=== PATIENT | male | born 1945 | race Caucasian/White ===

== ENCOUNTER 2018-10-30 10:20 | Day surgery (SDC) | payer MEDICARE, BC ==
[~2018-10-30] VITALS: Ht 170.2 cm; Wt 71.9 kg
[2018-10-30] VITALS (9 sets, daily range): BP systolic 116–142; BP diastolic 64–87
[2018-10-30] MEDS ORDERED: normal saline 1000ml 1,000 ML IV SCH (10:50)
[2018-10-30] MEDS ORDERED: sod bicarbonate 150mEq in D5W 1,150 ML IV ONE (10:50)
[2018-10-30] MEDS ORDERED: diphenhydrAMINE 25mg capsule PO PRN (10:50)
[2018-10-30] MEDS ORDERED: NPH,100V2 SQ (10:56)
[2018-10-30] MEDS ORDERED: LOVA20TA2 PO (10:56)
[2018-10-30] MEDS ORDERED: GLIP5TAB13 PO (10:56)
[2018-10-30] MEDS ORDERED: GLU850T PO (10:56)
[2018-10-30] MEDS ORDERED: ASPI-1265 PO (10:56)
[2018-10-30 11:29] LABS: BASOPHILS # (AUTO) 0.1 X10'3 (0-0.2); EOSINOPHILS # (AUTO) 0.2 X10'3 (0-0.9); EOSINOPHILS % (AUTO) 2.7 % (0-6); HEMATOCRIT 37.6 % (42.0-52.0); HEMOGLOBIN 12.5 g/dl (14.0-17.9); LYMPHOCYTES # (AUTO) 1.5 X10'3 (1.1-4.8); LYMPHOCYTES % (AUTO) 16.2 % (21-51); MEAN CORPUSCULAR HEMOGLOBIN 32.3 PG (27.0-31.0); MEAN CORPUSCULAR HGB CONC 33.3 % (33.0-36.5); MEAN CORPUSCULAR VOLUME 97.2 FL (78-98); MEAN PLATELET VOLUME 8.9 FL (7.4-10.4); MONOCYTES # (AUTO) 0.4 X10'3 (0-0.9); MONOCYTES % (AUTO) 4.5 % (2-12); NEUTROPHILS # (AUTO) 6.8 X10'3 (1.8-7.7); NEUTROPHILS % (AUTO) 75.6 % (42-75); PLATELET COUNT 308 X10'3 (140-440); RED BLOOD COUNT 3.87 X10'6 (4.70-6.10); RED CELL DISTRIBUTION WIDTH 14.4 % (11.5-14.5)
[2018-10-30 11:41] LABS: ALBUMIN 3.9 G/DL (3.4-5.0); ANION GAP 11 (8-16); BLOOD UREA NITROGEN 18 MG/DL (7-18); BUN/CREATININE RATIO 13.8 (5.4-32.0); CALCIUM 9.2 MG/DL (8.5-10.1); CHLORIDE 101 MMOL/L (99-107); MAGNESIUM 1.6 MG/DL (1.5-2.4); POTASSIUM 4.6 MMOL/L (3.5-5.1); SODIUM 137 MMOL/L (135-145); TOTAL CARBON DIOXIDE 25.5 MMOL/L (24-32); eGFR 54 ML/MIN
[2018-10-30 11:46] LABS: GLUCOSE 262 MG/DL (70-104)
[2018-10-30 11:53] LABS: PROTHROMBIN TIME 10.2 SECONDS (9.0-12.0)
[2018-10-30] MEDS ORDERED: iohexol 350MG/ML 100ml bottle IV ONE (13:49)
[2018-10-30] MEDS ORDERED: LIDOcaine 1% 30ml preserv. free vial ONE (13:49)
[2018-10-30] MEDS ORDERED: iohexol 350 MG/ML 50ML vial IV ONE (13:49)
[2018-10-30] MEDS ORDERED: midazolam 2 mg/2 ml injection ONE (14:08)
[2018-10-30] MEDS ORDERED: fentaNYL/PF 50MCG/1 ML 2ML syringe ONE (14:08)
[2018-10-30] MEDS ORDERED: HYDROcodone/acetaminophen 10/325mg tab PO PRN (15:25)
[2018-10-30] MEDS ORDERED: HYDROcodone/acetaminophen 5mg/325mg tablet PO PRN (15:25)
== END 2018-10-30 18:30 | disposition home or self-care (01) ==
LOC: SSTAY O 10:20
PROVIDERS: ATTEND Internal Medicine Cardiovascular Disease
DX: I25.10 Atherosclerotic heart disease of native coronary artery without angina pectoris (principal); I44.4 Left anterior fascicular block; I10 Essential (primary) hypertension; E78.5 Hyperlipidemia, unspecified; E11.9 Type 2 diabetes mellitus without complications; J44.9 Chronic obstructive pulmonary disease, unspecified; N28.9 Disorder of kidney and ureter, unspecified; F17.210 Nicotine dependence, cigarettes, uncomplicated; M19.90 Unspecified osteoarthritis, unspecified site; Z79.82 Long term (current) use of aspirin; Z87.09 Personal history of other diseases of the respiratory system; Z87.442 Personal history of urinary calculi; Z79.4 Long term (current) use of insulin; Z79.84 Long term (current) use of oral hypoglycemic drugs; Z87.01 Personal history of pneumonia (recurrent); Z98.890 Other specified postprocedural states; Z79.899 Other long term (current) drug therapy
CPT/HCPCS: 36415; 80048; 82948; 83735; 85025; 85610; 93005; 93458; 99152; 99153; A6257; C1760; J1644; J2250; J3010; J3490; Q0163; Q9967; C1769; C1894

== ENCOUNTER 2018-11-06 10:16 | Day surgery (SDC) | payer MEDICARE, BC ==
[~2018-11-06] VITALS: Ht 172.7 cm; Wt 70.8 kg
[2018-11-06] VITALS (11 sets, daily range): BP systolic 133–144; BP diastolic 62–88
[~2018-11-06 10:16] MED LIST: ASPI-1265 PO; GLIP5TAB13 PO; GLU850T PO; LOVA20TA2 PO; NPH,100V2 SQ
[2018-11-06] MEDS ORDERED: diphenhydrAMINE 25mg capsule PO PRN (10:40)
[2018-11-06] MEDS ORDERED: sod bicarbonate 150mEq in D5W 1,150 ML IV ONE (10:40)
[2018-11-06] MEDS ORDERED: ISOS30TA6 PO (10:43)
[2018-11-06] MEDS ORDERED: NITR0.4T48 SL (10:43)
[2018-11-06] MEDS ORDERED: normal saline 1000ml 1,000 ML IV SCH (10:50)
[2018-11-06 11:08] LABS: BASOPHILS % (AUTO) 0.6 % (0-1); EOSINOPHILS # (AUTO) 0.1 X10'3 (0-0.9); EOSINOPHILS % (AUTO) 1.8 % (0-6); HEMOGLOBIN 11.2 g/dl (14.0-17.9); LYMPHOCYTES # (AUTO) 1.3 X10'3 (1.1-4.8); MEAN CORPUSCULAR HEMOGLOBIN 32.2 PG (27.0-31.0); MEAN CORPUSCULAR HGB CONC 32.9 % (33.0-36.5); MEAN CORPUSCULAR VOLUME 97.9 FL (78-98); MONOCYTES # (AUTO) 0.3 X10'3 (0-0.9); NEUTROPHILS # (AUTO) 5.7 X10'3 (1.8-7.7); NEUTROPHILS % (AUTO) 75.6 % (42-75); PLATELET COUNT 265 X10'3 (140-440); RED BLOOD COUNT 3.48 X10'6 (4.70-6.10); WHITE BLOOD COUNT 7.4 X10'3 (4.5-11.0)
[2018-11-06 11:13] LABS: ALBUMIN 3.5 G/DL (3.4-5.0); ANION GAP 10 (8-16); BLOOD UREA NITROGEN 18 MG/DL (7-18); BUN/CREATININE RATIO 15.5 (5.4-32.0); CALCIUM 8.8 MG/DL (8.5-10.1); CHLORIDE 102 MMOL/L (99-107); CREATININE 1.16 MG/DL (0.60-1.10); MAGNESIUM 1.7 MG/DL (1.5-2.4); POTASSIUM 4.2 MMOL/L (3.5-5.1); SODIUM 136 MMOL/L (135-145); TOTAL CARBON DIOXIDE 23.8 MMOL/L (24-32); eGFR 62 ML/MIN
[2018-11-06 11:17] LABS: GLUCOSE 194 MG/DL (70-104)
[2018-11-06 11:19] LABS: PROTHROMBIN TIME 10.2 SECONDS (9.0-12.0)
--- NOTE | 2018-11-06 12:09 | NUR ---
PATIENT HAS A HEART CATH BY DR. MARIEE LAST TuesdayOctober. RIGHT GROIN BRUISING AND HEMATOMA PRESENT. HEMATOMA APPROX. 5-10 CM
[2018-11-06] MEDS ORDERED: LIDOcaine 1% (10mg/ml)w/preservative injection 20ml MDV ONE (12:19)
[2018-11-06] MEDS ORDERED: iohexol 350 MG/1 ML 200ml bottle ONE (12:19)
[2018-11-06] MEDS ORDERED: midazolam 2 mg/2 ml injection ONE (12:19)
[2018-11-06] MEDS ORDERED: fentaNYL/PF 50MCG/1 ML 2ML syringe ONE (12:19)
[2018-11-06] MEDS ORDERED: heparin 1,000unit/ml 10ml vial 10 ML ONE (12:19)
[2018-11-06] MEDS ORDERED: heparin 1,000 UNITS/NS 500ml 500 ML ONE (12:33)
[2018-11-06] MEDS ORDERED: ticagrelor 90mg tablet ONE (13:23)
--- NOTE | 2018-11-06 16:21 | NUR ---
REPORTED OFF TO TRICIA Partida RN
== END 2018-11-06 17:20 | disposition home or self-care (01) ==
LOC: SSTAY O 10:16
PROVIDERS: ATTEND Internal Medicine Cardiovascular Disease
DX: I25.119 Atherosclerotic heart disease of native coronary artery with unspecified angina pectoris (principal); I10 Essential (primary) hypertension; E78.5 Hyperlipidemia, unspecified; J44.9 Chronic obstructive pulmonary disease, unspecified; E11.9 Type 2 diabetes mellitus without complications; Z87.01 Personal history of pneumonia (recurrent); F17.210 Nicotine dependence, cigarettes, uncomplicated; Z79.82 Long term (current) use of aspirin; Z79.899 Other long term (current) drug therapy; Z98.890 Other specified postprocedural states
CPT/HCPCS: 36415; 80048; 82948; 83735; 85025; 85610; 93005; 99152; 99153; A6257; C1874; C9600; C9601; J1644; J2001; J2250; J3010; J7030; Q0163; Q9967; C1725; C1760; C1769; C1894